=== PATIENT | female | born 1940 | race Caucasian/White ===

== ENCOUNTER 2016-10-30 14:51 | Emergency (ER) | payer OTHER, BC ==
[2016-10-30 15:00] VITALS: BP 161/80; PULSE 81; TEMP 98.1; BMI 34.2
--- NOTE | 2016-10-30 15:49 | PDOC ---
History of Present Illness - General Chief Complaint: Injury Stated Complaint: FALL Time Seen by Provider: 10/30/16 15:28 History Source: Patient - History of Present Illness Initial Comments: 10/30/16 15:45 76 year old female s/p trip and fall with arm out-stretched c/o left elbow, upper arm pain. able to touch opposite shoulder. unable to open shoulder out. no deformity/ swelling noted. pmhx: hyptertension, hypercholestremia, diabetes, osteopenia Past History - Past Medical History Allergies/Adverse Reactions: Allergies Allergy/AdvReac Type Severity Reaction Status Date / Time Penicillins Allergy Unknown Verified 10/30/16 14:57 Home Medications: Ambulatory Orders Oxycodone HCl/Acetaminophen [Percocet 5-325 mg Tablet] 1 tab PO Q6H PRN #16 tablet MDD 4 10/30/16 Cardiac Disorders: Yes Diabetes: Yes HTN: Yes - Surgical History Abdominal Surgery: Yes (HERNIA X 2.) Cardiac Surgery: Yes - Psycho/Social/Smoking Cessation Hx Anxiety: No Suicidal Ideation: No Smoking History: Never smoked Hx Alcohol Use: No Drug/Substance Use Hx: No Substance Use Type: None *Physical Exam - Vital Signs Last Vital Signs Temp Pulse Resp BP Pulse Ox 98.1 F 81 18 161/80 99 10/30/16 14:55 10/30/16 14:55 10/30/16 14:55 10/30/16 14:55 10/30/16 14:55 - Physical Exam General Appearance: Yes: Appropriately Dressed Respiratory/Chest: positive: Lungs Clear, Normal Breath Sounds Cardiovascular: positive: Regular Rhythm, Regular Rate Gastrointestinal/Abdominal: positive: Normal Bowel Sounds, Soft Extremity: positive: Normal Capillary Refill, Normal Inspection, Normal Range of Motion, Other (unable to ROM left shouder ) Integumentary: positive: Normal Color, Dry, Warm Neurologic: positive: Fully Oriented, Alert, Normal Mood/Affect Medical Decision Making - Medical Decision Making 10/30/16 16:45 A: left humerus head fracture P: pain control orthopedic consult. 10/30/16 16:53 Dr. calderon [email or web address]. 10/30/16 17:19 Dr. Calderon reviewed film. recommends shoulder immobilizer, ice, sit upright position, pain control and followup with Dr. calderon outpatient *DC/Admit/Observation/Transfer Diagnosis at time of Disposition: Closed left humeral fracture Qualifiers: Encounter type: initial encounter Humerus Location: proximal Fracture morphology: other fracture Fracture alignment: displaced Qualified Code(s): S42.292A - Other displaced fracture of upper end of left humerus, initial encounter for closed fracture - Discharge Dispostion Disposition: HOME - Prescriptions Prescriptions: Oxycodone HCl/Acetaminophen [Percocet 5-325 mg Tablet] 1 tab PO Q6H PRN #16 tablet MDD 4 PRN Reason: Pain - Referrals Referrals: Anthony Ponce MD [Primary Care Provider] - Rosales Calderon MD [Staff Physician] - - Patient Instructions Printed Discharge Instructions: DI for Humeral Fracture Additional Instructions: keep arm in sling. sit upright as much as possible. take percocet every 6 hours as needed for pain/. follow up with Dr. calderon on Wednesday [phone]
[2016-10-30] MEDS ORDERED: ACETAMINOPHEN 325 MG TABLET (FP) PO ONE (16:35)
[2016-10-30] MEDS ORDERED: ACETAMINOPHEN 325 MG TABLET (FP) ONE (16:38)
== END 2016-10-30 17:42 | disposition home or self-care (01) ==
LOC: JERFT 14:51
DX: S42.292A Other displaced fracture of upper end of left humerus, initial encounter for closed fracture (principal); W18.39XA Other fall on same level, initial encounter; Y93.9 Activity, unspecified; Y92.9 Unspecified place or not applicable; I10 Essential (primary) hypertension; E11.9 Type 2 diabetes mellitus without complications; I51.9 Heart disease, unspecified
CPT/HCPCS: 71101-TC; 73030-TC-LT; 73060-TC-LT; 73070-TC-LT; 73090-TC-LT; 99281-25

== ENCOUNTER 2022-05-26 12:51 | Inpatient (IN) | payer OTHER, BC ==
[2022-05-26 13:22] VITALS: BMI 30.2
[2022-05-26] MEDS ORDERED: ACETAMINOPHEN 1000 MG/100 ML BAG IVPB ONE (14:53)
[2022-05-26] MEDS ORDERED: SODIUM CHLORIDE 0.9% 1000 ML INFUS.BAG IV ONE (15:45)
[2022-05-26 16:08] LABS: BASO % 0.1 % (0-2.0); HEMATOCRIT 40.2 % (32.4-45.2); HEMOGLOBIN 12.7 GM/dL (10.7-15.3); LYMPH % 3.6 % (8-40); MCH 25.2 pg (25.7-33.7); MCHC 31.5 g/dl (32.0-36.0); MEAN CELL VOLUME 80.1 fl (80-96); MEAN PLT VOLUME 9.6 fl (7.5-11.1); MONO % 9.9 % (3.8-10.2); NEUT % 86.4 % (42.8-82.8); PLATELET COUNT 172 10^3/uL (134-434); RBC 5.02 M/mm3 (3.60-5.2); RDW 15.9 % (11.6-15.6); WHITE BLOOD COUNT 11.4 K/mm3 (4.0-10.0)
[2022-05-26 16:31] LABS: CHLORIDE 108 mmol/L (98-107); SODIUM 142 mmol/L (136-145)
[2022-05-26 16:33] LABS: ALBUMIN 3.2 g/dl (3.4-5.0); CO2 24 mmol/L (21-32)
[2022-05-26 16:34] LABS: BLOOD UREA NITROGEN 26.2 mg/dL (7-18); GLUCOSE,RANDOM 129 mg/dL (74-106)
[2022-05-26 16:35] LABS: CALCIUM 9.3 mg/dL (8.5-10.1)
[2022-05-26 16:36] LABS: CREATININE 1.3 mg/dL (0.55-1.3)
[2022-05-26 16:37] LABS: SGOT/AST 58 U/L (15-37); SGPT/ALT 17 U/L (13-61)
[2022-05-26 16:38] LABS: BILIRUBIN,TOTAL 0.6 mg/dL (0.2-1); TOT PROT 7.2 g/dl (6.4-8.2)
[2022-05-26 16:39] LABS: ALK PHOS 88 U/L (45-117)
[2022-05-26 16:40] LABS: ANION GAP 10 MMOL/L (8-16)
[2022-05-26] MEDS ORDERED: ACETAMINOPHEN INJECTION 100 ML IVPB ONE ×2 (16:54→23:12)
[2022-05-26] MEDS ORDERED: ASPIRIN 81 MG CHEWABLE TABLETS PO ONE (16:59)
[2022-05-26] MEDS ORDERED: ASPIRIN 81 MG CHEWABLE TABLETS ONE (17:59)
[2022-05-26] MEDS: LACTATED RINGERS SOLUTION 1,000 ML/1,000 ML INFUS.BAG IV SCH (21:29)
[2022-05-26] MEDS ORDERED: ACETAMINOPHEN 500 MG TABLET (FP) PO ONE (22:49)
[2022-05-26] MEDS ORDERED: OSELTAMIVIR PHOSPHATE 75 MG CAPSULE PO SCH (23:15)
[2022-05-27] MEDS ORDERED: PATIENT'S OWN MEDICATION (NON-FORMULARY) (Losartan Potassium [Losartan Potassium] 100 MG T PO SCH (10:00)
[2022-05-27] MEDS ORDERED: ENOXAPARIN NA (PORCINE) 40 MG/0.4 ML DISP.SYRIN SQ ONE (10:28)
[2022-05-27] MEDS: OSELTAMIVIR PHOSPHATE 30 MG CAPSULE PO SCH ×2 (10:34→22:51)
[2022-05-27] MEDS: ENOXAPARIN NA (PORCINE) 40 MG/0.4 ML DISP.SYRIN SQ SCH (10:35)
[2022-05-27] MEDS: FLUTICASONE PROP 0.05% 16 GM NASAL SPRAY NS SCH ×2 (10:35→22:55)
[2022-05-27] MEDS: BRIMONIDINE TARTRATE 0.1% OPHTHALMIC 5 ML BOTTLE OU SCH ×3 (10:48→22:55)
[2022-05-27 12:43] LABS: HEMATOCRIT 37.8 % (32.4-45.2); HEMOGLOBIN 11.8 GM/dL (10.7-15.3); MCH 25.1 pg (25.7-33.7); MCHC 31.3 g/dl (32.0-36.0); MEAN CELL VOLUME 80.3 fl (80-96); MEAN PLT VOLUME 9.5 fl (7.5-11.1); PLATELET COUNT 150 10^3/uL (134-434); RBC 4.71 M/mm3 (3.60-5.2); RDW 15.9 % (11.6-15.6); WHITE BLOOD COUNT 6.5 K/mm3 (4.0-10.0)
[2022-05-27 12:55] LABS: CHLORIDE 110 mmol/L (98-107); SODIUM 145 mmol/L (136-145)
[2022-05-27 12:57] LABS: ANION GAP 10 MMOL/L (8-16); BLOOD UREA NITROGEN 18.9 mg/dL (7-18); CALCIUM 8.7 mg/dL (8.5-10.1); CO2 24 mmol/L (21-32); MAGNESIUM 1.8 mg/dL (1.8-2.4)
[2022-05-27 12:58] LABS: GLUCOSE,RANDOM 117 mg/dL (74-106)
[2022-05-27 13:00] LABS: PHOSPHOROUS 2.2 mg/dL (2.5-4.9)
[2022-05-27 13:01] LABS: CREATININE 0.8 mg/dL (0.55-1.3)
[2022-05-27] MEDS ORDERED: LIDOCAINE 5% TOPICAL PATCH ONE (13:46)
[2022-05-27] MEDS: LIDOCAINE 5% TOPICAL PATCH TP SCH (13:50)
[2022-05-27] MEDS ORDERED: KETOROLAC TROMETHAMINE 15 MG/ML VIAL IVPUSH PRN (15:44)
[2022-05-27] MEDS ORDERED: KETOROLAC TROMETHAMINE 15 MG/ML VIAL ONE (17:19)
[2022-05-27] MEDS: ATORVASTATIN CA 10 MG TABLET (FP) PO SCH (22:51)
[2022-05-27] MEDS: LACTATED RINGERS SOLUTION 1,000 ML/1,000 ML INFUS.BAG IV SCH (22:56)
[2022-05-27] MEDS: LIDOCAINE PATCH REMOVAL MC SCH (23:42)
[2022-05-28] MEDS: BRIMONIDINE TARTRATE 0.1% OPHTHALMIC 5 ML BOTTLE OU SCH ×3 (06:25→21:17)
[2022-05-28] MEDS: LIDOCAINE 5% TOPICAL PATCH TP SCH (10:12)
[2022-05-28] MEDS: FLUTICASONE PROP 0.05% 16 GM NASAL SPRAY NS SCH ×2 (10:13→21:17)
[2022-05-28] MEDS: ENOXAPARIN NA (PORCINE) 40 MG/0.4 ML DISP.SYRIN SQ SCH (10:14)
[2022-05-28] MEDS: OSELTAMIVIR PHOSPHATE 30 MG CAPSULE PO SCH ×2 (10:14→21:15)
[2022-05-28 10:15] LABS: BASO % 0.3 % (0-2.0); HEMATOCRIT 31.3 % (32.4-45.2); HEMOGLOBIN 10.2 GM/dL (10.7-15.3); LYMPH % 20.9 % (8-40); MCHC 32.8 g/dl (32.0-36.0); MEAN CELL VOLUME 79.5 fl (80-96); MEAN PLT VOLUME 9.5 fl (7.5-11.1); MONO % 14.1 % (3.8-10.2); NEUT % 64.7 % (42.8-82.8); PLATELET COUNT 119 10^3/uL (134-434); RBC 3.94 M/mm3 (3.60-5.2); RDW 15.6 % (11.6-15.6); WHITE BLOOD COUNT 5.8 K/mm3 (4.0-10.0)
[2022-05-28 10:35] LABS: CALCIUM 8.1 mg/dL (8.5-10.1)
[2022-05-28 10:36] LABS: BLOOD UREA NITROGEN 21.2 mg/dL (7-18); MAGNESIUM 1.8 mg/dL (1.8-2.4)
[2022-05-28 10:39] LABS: CREATININE 0.7 mg/dL (0.55-1.3)
[2022-05-28 10:40] LABS: BILIRUBIN,TOTAL 0.5 mg/dL (0.2-1); TOT PROT 5.3 g/dl (6.4-8.2)
[2022-05-28 10:43] LABS: ALBUMIN 2.3 g/dl (3.4-5.0)
[2022-05-28] MEDS: ACETAMINOPHEN 325 MG TABLET (FP) PO PRN ×2 (12:13→21:14)
[2022-05-28] MEDS ORDERED: NAPH,MB-DB/K PH,MBDB POWDER PACKET PO ONE (12:35)
[2022-05-28] MEDS: ATORVASTATIN CA 10 MG TABLET (FP) PO SCH (21:15)
[2022-05-28] MEDS: LIDOCAINE PATCH REMOVAL MC SCH (21:19)
[2022-05-29] MEDS: BRIMONIDINE TARTRATE 0.1% OPHTHALMIC 5 ML BOTTLE OU SCH ×2 (06:09→15:08)
[2022-05-29] MEDS: LIDOCAINE 5% TOPICAL PATCH TP SCH (09:10)
[2022-05-29] MEDS: ENOXAPARIN NA (PORCINE) 40 MG/0.4 ML DISP.SYRIN SQ SCH (09:11)
[2022-05-29] MEDS: OSELTAMIVIR PHOSPHATE 30 MG CAPSULE PO SCH (09:12)
[2022-05-29] MEDS: FLUTICASONE PROP 0.05% 16 GM NASAL SPRAY NS SCH (09:12)
[2022-05-29 13:23] VITALS: PULSE 86; RESP 19
[2022-05-29 15:52] VITALS: BP 138/60; TEMP 98.1
== END 2022-05-29 18:22 | disposition home or self-care (01) | DRG 312 ==
LOC: JER 12:51 → JERBED 18:20 → J4S 05-27 20:57
PROVIDERS: ADMIT Internal Medicine; ATTEND Internal Medicine
DX: R55 Syncope and collapse (principal); S42.291A Other displaced fracture of upper end of right humerus, initial encounter for closed fracture; M62.82 Rhabdomyolysis; I44.4 Left anterior fascicular block; J10.1 Influenza due to other identified influenza virus with other respiratory manifestations; I10 Essential (primary) hypertension; E11.9 Type 2 diabetes mellitus without complications; S00.81XA Abrasion of other part of head, initial encounter; J01.90 Acute sinusitis, unspecified; E78.5 Hyperlipidemia, unspecified; M25.462 Effusion, left knee; M17.12 Unilateral primary osteoarthritis, left knee; M25.511 Pain in right shoulder; W18.30XA Fall on same level, unspecified, initial encounter; T45.0X5A Adverse effect of antiallergic and antiemetic drugs, initial encounter; Y92.091 Bathroom in other non-institutional residence as the place of occurrence of the external cause
CPT/HCPCS: 0241U-QW; 36415; 70450-TC; 70486-TC; 71045-TC-FY; 72125-TC; 72170-TC-FY; 73030-TC-RT-FY; 73060-TC-RT-FY; 73070-TC-RT-FY; 73560-TC-LT-FY; 80048; 80053; 82550; 82553; 82962; 83735; 84100; 84132; 84436; 84443; 84484; 85025; 85027; 93005; 93010; 94010; 97116-GP; 97161-GP; 99285-25

== ENCOUNTER 2024-04-21 10:22 | Inpatient (IN) | payer OTHER, BC ==
[~2024-04-21 10:22] MED LIST: METOPROLOL TARTRATE 25 MG TABLET (FP) PO PRN
[2024-04-21] MEDS ORDERED: MORPHINE SULFATE 2 MG/ML SYRINGE ONE ×2 (11:15→16:40)
[2024-04-21] MEDS: morphine CARPU-JECT 2 MG/1 ML DISP.SYRIN IVPUSH ONE (11:38)
[2024-04-21 11:45] LABS: BASO % 0.4 % (0-2.0); EOS % 0.9 % (0-4.5); HEMATOCRIT 38.9 % (32.4-45.2); HEMOGLOBIN 12.7 GM/dL (10.7-15.3); LYMPH % 11.4 % (8-40); MCH 27.1 pg (25.7-33.7); MCHC 32.7 g/dl (32.0-36.0); MEAN CELL VOLUME 82.9 fl (80-96); MEAN PLT VOLUME 9.2 fl (7.5-11.1); MONO % 5.4 % (3.8-10.2); NEUT % 81.9 % (42.8-82.8); PLATELET COUNT 196 10^3/uL (134-434); WHITE BLOOD COUNT 10.6 K/mm3 (4.0-10.0)
[2024-04-21 11:52] LABS: INR 1.05 (0.83-1.09); PROTHROMBIN TIME (PATIENT) 12.1 SEC (9.7-13.0)
[2024-04-21 11:55] LABS: ACTIVATED PTT 29.8 SECONDS (25.2-36.5)
[2024-04-21] MEDS ORDERED: ACETAMINOPHEN 500 MG TABLET (FP) ONE (11:57)
[2024-04-21 12:05] LABS: POTASSIUM 4.4 mmol/L (3.5-5.1)
[2024-04-21 12:07] LABS: ALBUMIN 3.3 g/dl (3.4-5.0); BLOOD UREA NITROGEN 17.6 mg/dL (7-18); CALCIUM 8.8 mg/dL (8.5-10.1)
[2024-04-21 12:10] LABS: CREATININE 1.1 mg/dL (0.55-1.3)
[2024-04-21 12:13] LABS: BILIRUBIN,TOTAL 0.6 mg/dL (0.2-1); TOT PROT 6.9 g/dl (6.4-8.2)
[2024-04-21] MEDS ORDERED: ACETAMINOPHEN INJECTION 100 ML ONE (12:29)
[2024-04-21] MEDS: ACETAMINOPHEN 1000 MG/100 ML BAG IVPB ONE (12:38)
[2024-04-21] MEDS: ACETAMINOPHEN 500 MG TABLET (FP) PO ONE (12:38)
[2024-04-21] MEDS: MORPHINE SULFATE 2 MG/ML SYRINGE IVPUSH PRN (16:45)
[2024-04-21] MEDS ORDERED: METOPROLOL TARTRATE 25 MG TABLET (FP) ONE (18:18)
[2024-04-21] MEDS: METOPROLOL TARTRATE 25 MG TABLET (FP) PO SCH (18:22)
[2024-04-21] MEDS: ACETAMINOPHEN 1000 MG/100 ML BAG IVPB PRN (18:56)
[2024-04-21] MEDS: ATORVASTATIN CA 40 MG TABLET (FP) PO SCH (21:47)
[2024-04-21] MEDS ORDERED: ATORVASTATIN CA 10 MG TABLET (FP) PO SCH (22:00)
[2024-04-22 07:52] LABS: BASO % 0.4 % (0-2.0); EOS % 0.1 % (0-4.5); HEMOGLOBIN 11.1 GM/dL (10.7-15.3); LYMPH % 16.3 % (8-40); MCHC 32.6 g/dl (32.0-36.0); MEAN CELL VOLUME 82.9 fl (80-96); MEAN PLT VOLUME 9.6 fl (7.5-11.1); MONO % 11.2 % (3.8-10.2); PLATELET COUNT 206 10^3/uL (134-434); RDW 14.8 % (11.6-15.6); WHITE BLOOD COUNT 12.3 K/mm3 (4.0-10.0)
[2024-04-22 08:01] LABS: POTASSIUM 4.7 mmol/L (3.5-5.1)
[2024-04-22 08:04] LABS: BLOOD UREA NITROGEN 22.2 mg/dL (7-18); CALCIUM 9.3 mg/dL (8.5-10.1); MAGNESIUM 1.8 mg/dL (1.8-2.4)
[2024-04-22 08:08] LABS: CREATININE 1.1 mg/dL (0.55-1.3); PHOSPHOROUS 3.4 mg/dL (2.5-4.9)
[2024-04-22 08:10] LABS: BILIRUBIN,TOTAL 0.8 mg/dL (0.2-1); TOT PROT 6.2 g/dl (6.4-8.2)
[2024-04-22] MEDS ORDERED: PATIENT'S OWN MEDICATION (NON-FORMULARY) (Losartan Potassium [Losartan Potassium] 100 MG T PO SCH (10:00)
[2024-04-22] MEDS ORDERED: LOSARTAN POTASSIUM 50 MG TABLET PO SCH (10:00)
[2024-04-22] MEDS: LOSARTAN POTASSIUM 50 MG TABLET PO SCH (10:08)
[2024-04-23 07:25] LABS: BASO % 0.3 % (0-2.0); HEMATOCRIT 32.8 % (32.4-45.2); HEMOGLOBIN 10.6 GM/dL (10.7-15.3); LYMPH % 12.7 % (8-40); MCHC 32.4 g/dl (32.0-36.0); MEAN CELL VOLUME 83.2 fl (80-96); MEAN PLT VOLUME 9.6 fl (7.5-11.1); MONO % 11.5 % (3.8-10.2); NEUT % 75.5 % (42.8-82.8); PLATELET COUNT 178 10^3/uL (134-434); RBC 3.94 M/mm3 (3.60-5.2); RDW 15.1 % (11.6-15.6); WHITE BLOOD COUNT 13.6 K/mm3 (4.0-10.0)
[2024-04-23 07:39] LABS: POTASSIUM 4.4 mmol/L (3.5-5.1)
[2024-04-23 07:41] LABS: ALBUMIN 2.8 g/dl (3.4-5.0); BLOOD UREA NITROGEN 20.6 mg/dL (7-18)
[2024-04-23 07:43] LABS: MAGNESIUM 1.9 mg/dL (1.8-2.4)
[2024-04-23 07:47] LABS: BILIRUBIN,TOTAL 0.9 mg/dL (0.2-1); TOT PROT 6.1 g/dl (6.4-8.2)
[2024-04-23] MEDS: LIDOCAINE 4% PATCH TP ONE (22:33)
[2024-04-24] MEDS: LIDOCAINE PATCH REMOVAL MC SCH (00:56)
[2024-04-24 08:12] LABS: BASO % 0.5 % (0-2.0); EOS % 0.5 % (0-4.5); HEMATOCRIT 32.6 % (32.4-45.2); HEMOGLOBIN 10.7 GM/dL (10.7-15.3); LYMPH % 14.3 % (8-40); MCHC 32.8 g/dl (32.0-36.0); MEAN CELL VOLUME 82.4 fl (80-96); MEAN PLT VOLUME 9.7 fl (7.5-11.1); MONO % 11.2 % (3.8-10.2); NEUT % 73.5 % (42.8-82.8); PLATELET COUNT 170 10^3/uL (134-434); RBC 3.95 M/mm3 (3.60-5.2); RDW 15.1 % (11.6-15.6); WHITE BLOOD COUNT 12.6 K/mm3 (4.0-10.0)
[2024-04-24 08:39] LABS: POTASSIUM 4.3 mmol/L (3.5-5.1)
[2024-04-24 08:43] LABS: BLOOD UREA NITROGEN 21.2 mg/dL (7-18)
[2024-04-24 08:44] LABS: CALCIUM 8.7 mg/dL (8.5-10.1)
[2024-04-24 08:46] LABS: CREATININE 0.8 mg/dL (0.55-1.3)
[2024-04-25 07:58] LABS: BASO % 0.4 % (0-2.0); EOS % 1.6 % (0-4.5); HEMATOCRIT 33.2 % (32.4-45.2); HEMOGLOBIN 10.6 GM/dL (10.7-15.3); LYMPH % 18.5 % (8-40); MCH 26.8 pg (25.7-33.7); MEAN CELL VOLUME 83.6 fl (80-96); MEAN PLT VOLUME 9.7 fl (7.5-11.1); MONO % 10.7 % (3.8-10.2); NEUT % 68.8 % (42.8-82.8); PLATELET COUNT 173 10^3/uL (134-434); RBC 3.97 M/mm3 (3.60-5.2); RDW 15.1 % (11.6-15.6); WHITE BLOOD COUNT 11.1 K/mm3 (4.0-10.0)
[2024-04-25 08:21] LABS: POTASSIUM 4.4 mmol/L (3.5-5.1)
[2024-04-25 08:24] LABS: CALCIUM 8.3 mg/dL (8.5-10.1)
[2024-04-25 08:28] LABS: CREATININE 0.9 mg/dL (0.55-1.3)
[2024-04-25] MEDS: LIDOCAINE 4% PATCH TP SCH (10:15)
[2024-04-25] MEDS: BRIMONIDINE TARTRATE 0.1% OPHTHALMIC 5 ML BOTTLE OU SCH (12:01)
[2024-04-25] MEDS ORDERED: PATIENT'S OWN MEDICATION (NON-FORMULARY) (Bimatoprost [Lumigan] 7.5 ML Drops) IO SCH (20:00)
[2024-04-25] MEDS: LIDOCAINE PATCH REMOVAL MC SCH (22:48)
[2024-04-25] MEDS: LATANOPROST 0.005% OPHTH SOLN 2.5ML BOTTLE OU SCH (22:49)
[2024-04-26] MEDS: ENOXAPARIN NA (PORCINE) 40 MG/0.4 ML DISP.SYRIN SQ ONE (08:38)
[2024-04-26 11:14] LABS: MCH 26.5 pg (25.7-33.7); MCHC 31.5 g/dl (32.0-36.0); MEAN CELL VOLUME 83.9 fl (80-96); PLATELET COUNT 206 10^3/uL (134-434); RBC 4.17 M/mm3 (3.60-5.2); RDW 15.2 % (11.6-15.6); WHITE BLOOD COUNT 13.9 K/mm3 (4.0-10.0)
[2024-04-26 11:32] LABS: CHLORIDE 107 mmol/L (98-107); POTASSIUM 4.4 mmol/L (3.5-5.1); SODIUM 139 mmol/L (136-145)
[2024-04-26 11:35] LABS: ALBUMIN 2.6 g/dl (3.4-5.0); ANION GAP 9 mmol/L (4-13); BLOOD UREA NITROGEN 27.1 mg/dL (7-18); CO2 23 mmol/L (21-32); GLUCOSE,RANDOM 128 mg/dL (74-106); MAGNESIUM 2.3 mg/dL (1.8-2.4)
[2024-04-26] MEDS: ceFAZolin SODIUM 1 GM VIAL IVPB ONE (11:36)
[2024-04-26 11:38] LABS: CREATININE 0.8 mg/dL (0.55-1.3); PHOSPHOROUS 3.1 mg/dL (2.5-4.9); SGOT/AST 20 U/L (15-37); SGPT/ALT 16 U/L (13-61)
[2024-04-26 11:39] LABS: BILIRUBIN,TOTAL 1.2 mg/dL (0.2-1); TOT PROT 6.4 g/dl (6.4-8.2)
[2024-04-26 11:41] LABS: ALK PHOS 87 U/L (45-117)
[2024-04-26] MEDS ORDERED: ONDANSETRON 4 MG/2 ML VIAL IVPUSH PRN (12:09)
[2024-04-26] MEDS: LACTATED RINGERS SOLUTION 1,000 ML IV SCH (14:18)
[2024-04-26] MEDS: CEFAZOLIN 1 GM/D5W 1 GM/50 ML BAG IVPB SCH (19:03)
[2024-04-26 20:07] VITALS: RESP 18
[2024-04-26] MEDS: oxyCODONE HCL 5 MG TABLET PO PRN (21:57)
[2024-04-27 08:51] LABS: HEMATOCRIT 30.8 % (32.4-45.2); MCHC 32.5 g/dl (32.0-36.0); MEAN CELL VOLUME 82.9 fl (80-96); MEAN PLT VOLUME 9.8 fl (7.5-11.1); PLATELET COUNT 182 10^3/uL (134-434); RBC 3.72 M/mm3 (3.60-5.2); RDW 15.4 % (11.6-15.6); WHITE BLOOD COUNT 12.8 K/mm3 (4.0-10.0)
[2024-04-27 09:21] LABS: POTASSIUM 4.4 mmol/L (3.5-5.1)
[2024-04-27 09:29] LABS: BLOOD UREA NITROGEN 29.1 mg/dL (7-18)
[2024-04-27 09:30] LABS: CALCIUM 8.3 mg/dL (8.5-10.1)
[2024-04-27 09:32] LABS: CREATININE 0.9 mg/dL (0.55-1.3); MAGNESIUM 2.1 mg/dL (1.8-2.4); PHOSPHOROUS 2.8 mg/dL (2.5-4.9)
[2024-04-27] MEDS: ENOXAPARIN NA (PORCINE) 40 MG/0.4 ML DISP.SYRIN SQ SCH (10:28)
[2024-04-27] MEDS ORDERED: METOPROLOL TARTRATE 25 MG TABLET (FP) PO PRN (20:34)
[2024-04-27] MEDS ORDERED: oxyCODONE HCL 5 MG TABLET PO PRN (20:34)
[2024-04-27] MEDS: LIDOCAINE PATCH REMOVAL MC SCH ×2 (21:19→21:20)
[2024-04-27] MEDS: BRIMONIDINE TARTRATE 0.1% OPHTHALMIC 5 ML BOTTLE OU SCH (21:19)
[2024-04-27] MEDS: ATORVASTATIN CA 40 MG TABLET (FP) PO SCH (21:20)
[2024-04-27] MEDS: METOPROLOL TARTRATE 25 MG TABLET (FP) PO SCH (21:21)
[2024-04-27] MEDS: LATANOPROST 0.005% OPHTH SOLN 2.5ML BOTTLE OU SCH (21:21)
[2024-04-27] MEDS: ACETAMINOPHEN 1000 MG/100 ML BAG IVPB PRN (23:02)
[2024-04-28] MEDS: LIDOCAINE 4% PATCH TP SCH (09:15)
[2024-04-28] MEDS: ENOXAPARIN NA (PORCINE) 40 MG/0.4 ML DISP.SYRIN SQ SCH (09:15)
[2024-04-28] MEDS: LOSARTAN POTASSIUM 50 MG TABLET PO SCH (09:15)
[2024-04-28 11:10] LABS: HEMATOCRIT 28.6 % (32.4-45.2); HEMOGLOBIN 9.1 GM/dL (10.7-15.3); MCH 26.4 pg (25.7-33.7); MCHC 31.9 g/dl (32.0-36.0); MEAN CELL VOLUME 82.9 fl (80-96); MEAN PLT VOLUME 10.1 fl (7.5-11.1); PLATELET COUNT 197 10^3/uL (134-434); RBC 3.44 M/mm3 (3.60-5.2); RDW 15.2 % (11.6-15.6); WHITE BLOOD COUNT 12.2 K/mm3 (4.0-10.0)
[2024-04-28 11:25] LABS: CALCIUM 8.2 mg/dL (8.5-10.1)
[2024-04-28 11:26] LABS: ALBUMIN 2.2 g/dl (3.4-5.0); BLOOD UREA NITROGEN 35.9 mg/dL (7-18); MAGNESIUM 2.2 mg/dL (1.8-2.4)
[2024-04-28 11:29] LABS: PHOSPHOROUS 2.6 mg/dL (2.5-4.9)
[2024-04-28 11:30] LABS: BILIRUBIN,TOTAL 1.3 mg/dL (0.2-1); TOT PROT 5.6 g/dl (6.4-8.2)
[2024-04-28] MEDS: BACITRACIN ZINC 15 GM TUBE TOPICAL OINTMENT TP SCH (13:24)
[2024-04-28] MEDS: MAGNESIUM OXIDE 400 MG TABLET (FP) PO ONE (13:24)
[2024-04-28] MEDS: traMADol HCL 50 MG TABLET PO PRN (13:25)
[2024-04-28 16:26] VITALS: BMI 35.9
[2024-04-28] MEDS: METOPROLOL TARTRATE 25 MG TABLET (FP) PO SCH (21:48)
[2024-04-29] MEDS: ASPIRIN 81 MG CHEWABLE TABLETS PO SCH (09:37)
[2024-04-29] MEDS: MAGNESIUM OXIDE 400 MG TABLET (FP) PO SCH (09:38)
[2024-04-29] MEDS: metoPROLOL SUCCINATE 25 MG TAB.SR.24H (FP) PO SCH (09:39)
[2024-04-29 09:49] LABS: BASO % 0.5 % (0-2.0); EOS % 2.2 % (0-4.5); HEMATOCRIT 28.9 % (32.4-45.2); HEMOGLOBIN 9.3 GM/dL (10.7-15.3); LYMPH % 12.4 % (8-40); MCH 26.8 pg (25.7-33.7); MEAN CELL VOLUME 83.6 fl (80-96); MEAN PLT VOLUME 9.8 fl (7.5-11.1); MONO % 10.5 % (3.8-10.2); NEUT % 74.4 % (42.8-82.8); PLATELET COUNT 246 10^3/uL (134-434); RBC 3.46 M/mm3 (3.60-5.2); RDW 15.3 % (11.6-15.6); WHITE BLOOD COUNT 12.6 K/mm3 (4.0-10.0)
[2024-04-29 10:20] LABS: ALBUMIN 2.2 g/dl (3.4-5.0); BLOOD UREA NITROGEN 31.8 mg/dL (7-18)
[2024-04-29 10:21] LABS: BILIRUBIN,TOTAL 1.3 mg/dL (0.2-1); TOT PROT 5.9 g/dl (6.4-8.2)
[2024-04-29 10:23] LABS: CREATININE 0.8 mg/dL (0.55-1.3)
[2024-04-29 10:26] LABS: CALCIUM 8.8 mg/dL (8.5-10.1)
[2024-04-29 10:27] LABS: MAGNESIUM 2.3 mg/dL (1.8-2.4)
[2024-04-29 13:45] VITALS: BP 109/55; PULSE 72; TEMP 98.2
== END 2024-04-29 13:48 | DRG 480 ==
LOC: JER 10:22 → JERBED 12:41 → J4W 18:38 → J8W 04-27 17:18
PROVIDERS: ADMIT Internal Medicine; ATTEND Registered Nurse
PROC: 0QS706Z Reposition Left Upper Femur with Intramedullary Internal Fixation Device, Open Approach (ICD-10-PCS; principal; 2024-04-26 11:00)
DX: S72.142A Displaced intertrochanteric fracture of left femur, initial encounter for closed fracture (principal); I21.4 Non-ST elevation (NSTEMI) myocardial infarction; I10 Essential (primary) hypertension; I25.10 Atherosclerotic heart disease of native coronary artery without angina pectoris; W19.XXXA Unspecified fall, initial encounter; Y93.89 Activity, other specified; Y92.009 Unspecified place in unspecified non-institutional (private) residence as the place of occurrence of the external cause; Y99.8 Other external cause status; H40.9 Unspecified glaucoma; E66.9 Obesity, unspecified; Z68.35 Body mass index [BMI] 35.0-35.9, adult
CPT/HCPCS: 36415; 70450-TC; 71045-TC-FY; 72125-TC; 73502-TC-LT-FY; 73552-TC-LT-FY; 76000-TC-FY; 80048; 80053; 82550; 83735; 84100; 84484; 85025; 85027; 85610; 85730; 86850; 86900; 86901; 87635; 93005; 93010; 93306-TC; 94760; 97116-GP; 97162-GP; 99285-25; C1713; J0131